=== PATIENT | female | born 1950 | race Caucasian/White ===

== ENCOUNTER 2018-09-28 13:00 | Inpatient (IN) | payer OTHER ==
[~2018-09-28] VITALS: Ht 157.5 cm; Wt 74.9 kg
[2018-09-28 13:20] VITALS: Ht 157.5 cm; Wt 74.9 kg
[2018-09-28 14:18] LABS: BASOPHIL % 0.2 % (0-2); PLATELET COUNT 221 x10^3mcL (130-400)
[2018-09-28 14:19] LABS: RED CELL DISTRIBUTION WIDTH 16.6 % (11.5-14.5)
[2018-09-28 15:19] LABS: CALCIUM 11.6 mg/dL (8.5-10.1); CARBON DIOXIDE 29.4 mmol/L (21-32); CHLORIDE SERUM 97 mmol/L (98-107); GFR1 17 mL/min; GLUCOSE SERUM 329 mg/dL (74-106); POTASSIUM SERUM 3.6 mmol/L (3.5-5.1); SODIUM SERUM 138 mmol/L (136-145)
[2018-09-28 15:27] LABS: ALBUMIN 3.5 g/dL (3.4-5.0); ALKALINE PHOSPHATASE 190 U/L (46-116); ALT/SGPT 22 U/L (14-59); AST/SGOT 14 U/L (15-37); BILIRUBIN TOTAL 0.58 mg/dL (0.20-1.00); CHOLESTEROL 295 mg/dL (<200)
[2018-09-28 16:13] LABS: PHOSPHOROUS 3.8 mg/dL (2.5-4.9)
[2018-09-28 16:49] VITALS: BP 138/50
[2018-09-28 18:07] LABS: microscopic required? YES; urine erythrocyte 1+ (NEGATIVE)
[2018-09-28 18:26] LABS: AMPHETAMINE QUAL UR NONE DETECTED (See below)
[2018-09-28] MEDS ORDERED: LOSARTAN POTASS1 TAB PO (19:57)
[2018-09-28] MEDS ORDERED: CALCITRIOL0.5 MCG PO (19:58)
[2018-09-28] MEDS ORDERED: FERROUS SULFAT325 M2 PO (19:58)
[2018-09-28] MEDS ORDERED: TRAMADOL HCL50 MG (19:59)
[2018-09-28] MEDS ORDERED: HUMI (20:00)
[2018-09-28 21:17] VITALS: BP 134/44
[2018-09-29 05:01] VITALS: BP 163/59
[2018-09-29 06:38] LABS: BASOPHIL % 0.6 % (0-2); PLATELET COUNT 202 x10^3mcL (130-400)
[2018-09-29 06:39] LABS: RED CELL DISTRIBUTION WIDTH 15.9 % (11.5-14.5)
[2018-09-29 07:11] LABS: CALCIUM 10.4 mg/dL (8.5-10.1); CARBON DIOXIDE 31.3 mmol/L (21-32); POTASSIUM SERUM 3.4 mmol/L (3.5-5.1)
[2018-09-29 07:21] LABS: CREATININE SERUM 4.7 mg/dL (0.6-1.0)
[2018-09-29 08:00] VITALS: BP 164/46
[2018-09-29 13:48] VITALS: BP 148/47
[2018-09-29 18:04] VITALS: BP 173/54
[2018-09-29 21:18] VITALS: BP 137/49
[2018-09-30 04:59] VITALS: BP 166/59
[2018-09-30 09:00] VITALS: BP 138/58
[2018-09-30 18:13] VITALS: BP 159/61
[2018-09-30 20:58] VITALS: BP 139/54
[2018-10-01 06:11] VITALS: BP 145/54
[2018-10-01 07:24] VITALS: BP 139/55
[2018-10-01] MEDS ORDERED: BACTRIM DS1 TAB PO (08:48)
[2018-10-01 15:06] VITALS: BP 148/64
[2018-10-01 15:48] VITALS: BP 139/55
== END 2018-10-01 21:43 | disposition home or self-care (01) | DRG 682 ==
LOC: ED 13:00 → MU 15:21
PROVIDERS: Specialist; ADMIT Internal Medicine
DX: I12.0 Hypertensive chronic kidney disease with stage 5 chronic kidney disease or end stage renal disease (principal); N18.6 End stage renal disease; G93.41 Metabolic encephalopathy; N17.0 Acute kidney failure with tubular necrosis; N39.0 Urinary tract infection, site not specified; D68.69 Other thrombophilia; E11.65 Type 2 diabetes mellitus with hyperglycemia; E11.22 Type 2 diabetes mellitus with diabetic chronic kidney disease; E78.5 Hyperlipidemia, unspecified; E83.41 Hypermagnesemia; R74.0 Nonspecific elevation of levels of transaminase and lactic acid dehydrogenase [LDH]; Z99.2 Dependence on renal dialysis; Z68.26 Body mass index [BMI] 26.0-26.9, adult
CPT/HCPCS: 36600; 82962; 83880; 94150; 97110-GP; 97112-GP; 97116-GP; 97530-GP; G0480; J0696; J1644; J1815; J1885; J2270; J2405; J7050; Q0092